=== PATIENT | male | born 1945 | race Caucasian/White ===

== ENCOUNTER → 2022-06-17 09:34 | Outpatient (CLI) | payer MEDICARE, SELFPAY | PROVIDERS: Family Provider Specialist; PCP Student in an Organized Health Care Education/Training Program; Visit Provider Specialist | DX: N13.8 Other obstructive and reflux uropathy (principal); N40.1 Benign prostatic hyperplasia with lower urinary tract symptoms; Z85.51 Personal history of malignant neoplasm of bladder | CPT/HCPCS: 51798; 52000; 81002; 87086; 99214 ==